=== PATIENT | male | born 1975 | race Caucasian/White ===

== ENCOUNTER 2025-07-16 08:38 | Outpatient (AMB) | payer OTHER, SELFPAY ==
--- NOTE | 2025-07-16 08:46 | A.OFFPC_ITS ---
Vital Signs 07/16/25 08:53 Height 5 ft 11.65 in Weight 245 lb 6 oz BMI 33.6 BP 126/86 Blood Pressure Location Rt brachial Position Sitting Respiration 14 Pulse 89 Pulse Source Pulse Oximeter Temp 98 F Temp Source Oral Pulse Oximetry (%) 97 Oxygen Delivery Method Room Air Intake Visit Reasons: meds for diabetes/chol/BP Intake Note: New patient visit [employer] Required: No Allergies No Known Allergies Allergy (Verified 07/16/25 08:50) Medication List - Last Reconciled 07/16/25 by Chula Wright PA-C blood-glucose sensor (FreeStyle Tiffany 3 Plus Sensor device) As directed fenofibrate 160 mg PO DAILY insulin degludec (Tresiba FlexTouch U-200 insulin) units subcut lisinopril 10 mg PO DAILY metformin 1,000 mg PO BID rosuvastatin 20 mg PO BEDTIME semaglutide (Ozempic) mg subcut Tobacco use date assessed: 07/16/25 Dental Screening Dental Screen Date: 07/16/25 Did you have a dental visit in the last 12 months?: No Did you have a dental problem in the last 6 months where you did not have access to dental care?: No Was dental information given to patient?: Patient declined HPI meds for diabetes/chol/BP HPI Details Pt is a 49 y/o male who presents today to establish care. He is transferring from [place]. Endo: dx 2019 with t2dm, neg antibodies. His A1c today is 9.1. He is on 24 units of tresiba, metformin 1000 mg bid -er due to upset stomach, ozempic 2 mg weekly Trulicity- caused nausea, ozempic sometimes causes vomiting at higher doses, Hypoglycemia- rare, understands how to treat low glucose cgm- out of sensors Ophthalmology: Up-to-date, had a recent eye exam without any retinopathy CV: bp today in the office 126/86 on lisinopril 10 mg. cholesterol is managed with crestor 20 mg and fenofibrate 160 mg daily. 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 1. Little interest or pleasure in doing things: not at all 2. Feeling down, depressed, or hopeless: not at all 3. Trouble falling or staying asleep, or sleeping too much: not at all 4. Feeling tired or having little energy: not at all 5. Poor appetite or overeating: not at all 6. Feeling bad about yourself - or that you are a failure or have let yourself or your family down: not at all 7. Trouble concentrating on things, such as reading the newspaper or watching television: not at all 8. Moving or speaking so slowly that other people could have noticed. Or the opposite - being so fidgety or restless that you have been moving around a lot more than usual: not at all 9. Thoughts that you would be better off or of hurting yourself in some way: not at all Total score: 0 Depression Screening Interpretation: Negative Depression Screening Done: Yes 27636 - PHQ-9 Billing: Yes Source: Developed by Drs. Gregory Limon, Rosie Charles, Ramone Reno and colleagues, with an educational graham from [employer]. Thrive Questionnaire Date Thrive assessed: 07/16/25 I am a: Patient What is your living situation today?: I have a steady place to live Within the past 12 months, did the food you bought not last and you didn't have the money to get more?: Never true Within the past 12 months, did you worry whether your food would run out before you got money to buy more?: Never true Do you have trouble paying for medicines?: No Do you have trouble getting transportation to medical appointments?: No Do you have trouble paying your heating and electricity bill?: No Do you have trouble taking care of your child, family member or friend?: No Do you have trouble with day-to-day activities such as bathing, preparing meals, shopping, managing finances, etc.?: No Are you currently unemployed and looking for a job?: No Are you interested in more education?: No Please select the resources that you would like help with: None Currently or been in a relationship where the following occur: No concerns reported THRIVE Score: 0 AUDIT C Alcohol Use Questionnaire (AUDIT-C) 1. How often do you have a drink containing alcohol?: 2-4 times a month 2. How many drinks containing alcohol do you have on a typical day when you are drinking?: 3 or 4 3. How often do you have six or more drinks on one occasion?: Monthly Total Score: 5 Score Reviewed/Action Taken: Yes ANNABELLA-7 AMB Questionnaire ANNABELLA-7 Date ANNABELLA - 7 assessed: 07/16/25 Feeling nervous, anxious, or on edge: 0 = Not at all Not being able to stop or control worryin = Not at all Worrying too much about different things: 0 = Not at all Trouble relaxin = Not at all Being so restless that it is hard to sit still: 0 = Not at all Becoming easily annoyed or irritable: 0 = Not at all Feeling afraid as if something awful might happen: 0 = Not at all Total ANNABELLA-7 score (0-4 normal; 5-9 mild; 10-14 moderate; 15-21 severe): 0 Source: Developed by Drs. Gregory Limon, Rosie Charles, Ramone Reno and colleagues, with an educational graham from [employer]. ANNABELLA-7 Assessment Billing ANNABELLA-7 Assessment Tool: ANNABELLA-7 Assessment 48823 Physical exam (Primary Care) Vital Signs: Last Vital Signs Temp 98 F 07/16/25 08:53 Pulse 89 07/16/25 08:53 Resp 14 07/16/25 08:53 BP 126/86 07/16/25 08:53 Pulse Ox 97 07/16/25 08:53 Oxygen Delivery Method Room Air 07/16/25 08:53 BMI result Body Mass Index 33.6 Tobacco/Smoking Status: Tobacco use Status Tobacco use date assessed 07/16/25 07/16/25 08:57 Patient Tobacco Use Status Never used Tobacco 07/16/25 08:57 e-Cigarette/Vaping Use Never Used 07/16/25 08:57 PHQ-9: PHQ-9 Score PHQ-9: Total score 0 07/16/25 09:13 Depression Screening Interpretation: Negative Thrive Assessment: Date of Thrive Assessment Date Thrive assessed 07/16/25 07/16/25 09:15 Currently or been in a relationship where the following occur: No concerns reported Const Orientation/consciousness: patient oriented x3 HENMT Ears: hearing grossly normal bilaterally Neck Thyroid: Thyroid normal Lymphatic: no lymphadenopathy noted Resp Auscultation: clear to auscultation bilaterally Cardio Rate: regular rate Rhythm: regular rhythm Heart sounds: S1 normal heart sound present and S2 normal heart sound present GI Inspection: Yes normal to inspection Palpation (GI): Soft to palpation and Other GI palpation findings present (nontender, no cva tenderness) Auscultation: normoactive bowel sounds Rectal Exam - Male: Yes deferred Skin General skin exam: no rashes or lesions noted Neuro General: patient oriented x3, gait normal and no focal motor deficits Results AMB Hemoglobin A1c AMB Hemoglobin A1c 9.1 % Last Edit by Katelyn Rodriges CMA on 07/16/25 09:15 Results Reviewed Results Reviewed: Laboratory Last Values Hgb A1c (Clinic) 9.1 % (4.0-6.0) H 07/16/25 09:14 Coding Level of Care Code New Pt Level 4 (08357) Add On Problem Visit Only Diagnoses Uncontrolled type 2 diabetes mellitus with hyperglycemia, with long-term current use of insulin E11.65; Z79.4 Hypertension I10 Dyslipidemia E78.5 Additional Codes ANNABELLA-7 Assessment Billing - ANNABELLA-7 Assessment Tool: ANNABELLA-7 Assessment 19769 ([id number]) PHQ-9 - 64661 - PHQ-9 Billing: Yes ([id number]) Assessment & Plan Assessment & Plan (1) Uncontrolled type 2 diabetes mellitus with hyperglycemia, with long-term current use of insulin: Code(s): E11.65 - Type 2 diabetes mellitus with hyperglycemia; Z79.4 - halfway (current) use of insulin Category: Medical Plan: We will switch from Ozempic to Mounjaro Continue metformin and Tresiba. Testing supplies ordered Sensors ordered. He does have the filippo downloaded on his phone. We reviewed rule of 15. Glucagon spray ordered Has glucose tabs at home Offered referral to endocrinology but we will wait on this at this point. Labs ordered today. Short term follow up arranged in 6 weeks. (2) Hypertension: Code(s): I10 - Essential (primary) hypertension Category: Medical Plan: WNL. Continue current regimen (3) Dyslipidemia: Code(s): E78.5 - Hyperlipidemia, unspecified Category: Medical Plan: Refilled fenofibrate and Crestor. Plan Labs ordered Referral to GI for colonoscopy Health maintenance reviewed Short term follow up. Orders: Orders Comprehensive [place]. 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 Prostate Specific Antigen Scr Today E11.65 - Type 2 diabetes mellitus with hyperglycemia, E78.5 - Hyperlipidemia, unspecified, I10 - Essential (primary) hypertension, Z01.89 - Encounter for other specified special examinations, Z79.4 - halfway (current) use of insulin UA CC w/rflx Micro + Cult Today E11.65 - Type 2 diabetes mellitus with hyperglycemia, E78.5 - Hyperlipidemia, unspecified, I10 - Essential (primary) hypertension, R30.0 - Dysuria, Z79.4 - halfway (current) use of insulin AMB Hemoglobin A1c Today E11.9 - Type 2 diabetes mellitus without complications Complete Blood Count Auto Diff Today E11.65 - Type 2 diabetes mellitus with hyperglycemia, E78.5 - Hyperlipidemia, unspecified, I10 - Essential (primary) hypertension, 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 Hemoglobin A1c 3 Months E11.65 - Type 2 diabetes mellitus with hyperglycemia, E78.5 - Hyperlipidemia, unspecified, I10 - Essential (primary) hypertension, R73.01 - Impaired fasting glucose, 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 Lipid Panel Today E11.65 - Type 2 diabetes mellitus with hyperglycemia, E78.5 - Hyperlipidemia, unspecified, I10 - Essential (primary) hypertension, 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 TSH reflex Free T4 Today E11.65 - Type 2 diabetes mellitus with hyperglycemia, E78.5 - Hyperlipidemia, unspecified, I10 - Essential (primary) hypertension, 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 Microalbumin, Random (w Creat) Today E11.65 - Type 2 diabetes mellitus with hyperglycemia, E78.5 - Hyperlipidemia, unspecified, I10 - Essential (primary) hypertension, Z79.4 - halfway (current) use of insulin Referrals Gastroenterology Referral Z12.11 - Encounter for screening for malignant neoplasm of colon Medications: New blood-glucose sensor (FreeStyle Tiffany 3 Plus Sensor device) Use daily As directed to monitor glucose 6 ea 2RF E08.29 - Diabetes mellitus due to underlying condition with other diabetic kidney complication, R80.8 - Other proteinuria, 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 1 ea 0RF insulin degludec (Tresiba FlexTouch U-200 insulin) 22 units (0.11 mL) subcut DAILY 9 mL 3RF pen needle, diabetic Use daily As directed with tresiba 100 ea 3RF fenofibrate 160 mg PO DAILY 90 tabs 3RF lisinopril 10 mg PO DAILY 90 tabs 3RF rosuvastatin 20 mg PO BEDTIME 90 tabs 3RF metformin ER (Glucophage XR) 1,000 mg (2 x 500 mg) PO BID 360 tabs 3RF 90 days lancets (ProxlyTouch UltraSoft 2 Lancet) use daily As directed to monitor blood sugars 100 ea 2RF glucagon 3 mg/actuation 3 mg intranasal ONCE PRN 2 ea 1RF hypoglycemia tirzepatide (Mounjaro) 2.5 mg (0.5 mL) subcut QWEEK 2 mL 2RF alcohol swabs (Alcohol Prep Pads) 1 pad topical DAILY 100 ea 3RF E11.65 - Type 2 diabetes mellitus with hyperglycemia, 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
[2025-07-16 08:53] VITALS: BP 126/86; PULSE 89; RESP 14; TEMP 36.6; O2SAT 97; BMI 33.6
== END 2025-07-16 09:52 | disposition home or self-care (01) ==
LOC: HO.HMCFM 08:39
PROVIDERS: PCP Physician Assistant; Visit Provider Physician Assistant
DX: E11.65 Type 2 diabetes mellitus with hyperglycemia (principal); Z79.4 Long term (current) use of insulin; I10 Essential (primary) hypertension; E78.5 Hyperlipidemia, unspecified; E11.9 Type 2 diabetes mellitus without complications

== ENCOUNTER → 2025-07-16 08:38 | Outpatient (BNVA) | payer OTHER, SELFPAY | PROVIDERS: Visit Provider Physician Assistant | DX: Z13.31 Encounter for screening for depression (principal); Z13.39 Encounter for screening examination for other mental health and behavioral disorders; E11.65 Type 2 diabetes mellitus with hyperglycemia | CPT/HCPCS: 83036; 96127 ==

== ENCOUNTER 2025-07-17 07:37 | Outpatient (REF) | payer OTHER, SELFPAY ==
[2025-07-17 11:01] LABS: Appearance Urine Clear; Glucose Urine UA >=1000 mg/dL (Negative); PH 6.0 (5.0-9.0); Specific Gravity - Urine >= 1.030 (1.005-1.025); UMIC TRIGGER UACC YES
[2025-07-17 11:08] LABS: MANUAL DIFF FLAG NO
[2025-07-17 11:14] LABS: Hematocrit 37.2 % (42.0-52.0); Hemoglobin 13.2 g/dl (14.0-18.0); Imm Gran Abs Auto 0.02 X10*3/uL (0.00-0.03); Imm Gran Pct Auto 0.4 % (0.0-0.4); Lymphocytes Absolute Auto 1.5 X10*3/uL (1.2-4.9); Mean Corpuscular HGB Conc 35.5 g/dl (31.0-36.0); Mean Corpuscular Hemoglobin 35.2 pg (27.0-33.0); Mean Corpuscular Volume 99.2 fL (80.0-98.0); NRBC Abs Auto 0.000 X10*3/uL (0.0-0.012); NRBC Pct Auto 0.0 /100WBC (0.0-0.2); Platelet Count 214 X10*3/uL (160-400); Red Blood Count 3.75 X10*6/uL (4.60-5.80); White Blood Count 4.7 X10*3/uL (4.8-10.8)
[2025-07-17 11:46] LABS: Alanine Aminotransferase 46 U/L (0-40); Albumin Level 4.1 g/dL (3.5-5.0); Alkaline Phosphatase 50 U/L (39-117); Anion Gap 15 (12-20); Aspartate Amino Transferase 27 U/L (5-37); Blood Urea Nitrogen 19 mg/dL (9-16); Calcium 9.5 mg/dL (8.4-10.2); Carbon Dioxide 23 mmol/L (22-29); Chloride 104 mmol/L (96-108); Cholesterol 109 mg/dL (<200); Estimated Glomerular Filt Rate > 60; HDL Cholesterol 33 mg/dL (>40); Potassium 4.8 mmol/L (3.3-5.1); Sodium 137 mmol/L (135-145); Total Protein 7.6 g/dL (6.5-8.0); Triglycerides 217 mg/dL (<150)
[2025-07-17 11:53] LABS: Microalbum/Creatinine Ratio Ur 14.6 ug/mg cr (<30)
== END 2025-07-17 07:38 | disposition home or self-care (01) ==
LOC: HO.WFDLDS 07:37
PROVIDERS: Visit Provider Physician Assistant
DX: Z01.89 Encounter for other specified special examinations (principal); Z12.5 Encounter for screening for malignant neoplasm of prostate; E11.65 Type 2 diabetes mellitus with hyperglycemia; I10 Essential (primary) hypertension; E78.5 Hyperlipidemia, unspecified; R30.0 Dysuria; Z79.4 Long term (current) use of insulin
CPT/HCPCS: 36415; 80053; 80061; 81001; 81003; 82043; 82570; 84153; 84443; 85025